=== PATIENT | female | born 1970 | race Caucasian/White ===

== ENCOUNTER 2017-06-03 00:26 | Emergency (ER) | payer OTHER ==
[2017-06-03] MEDS: HYDROCODONE/APAP (5/325) TAB PO (05:41)
== END 2017-06-03 08:25 | disposition home or self-care (01) ==
LOC: FTE 00:26
DX: M79.671 Pain in right foot (principal); M25.571 Pain in right ankle and joints of right foot
CPT/HCPCS: 73610; 73610-RT; 73630; 99283-25